=== PATIENT | male | born 1965 | race Caucasian/White ===

== ENCOUNTER → 2016-12-10 | Outpatient (CLI) | payer BC ==
[~2016-12-10] MED LIST: ABILIFY2 MG PO; ADDERALL PO; ASPIRIN81 MG PO; COMBIVENT RESPIM4 GM IH; FISH OIL 1,2001 CAP PO; LIPITOR20 MG DOB; NORVASC10 MG PO; TOPROL XL50 MG PO
--- NOTE | ~2016-12-10 | CT3 ---
[facility] A Service of [facility] RADIOLOGY TEXT RESULTS PATIENT: DEIRD[facility]OWE [facility] 63 UNIT #: [id number] AGE: [address]: Matthew Soto MD SEX: M ORDER DR: [id number] [facility] [address] [place], [place] [address] [id number] O MR#: [id number] Acc #: [id number] NAME: DEIRDRE LOWE. : 1965 SEX: M STUDY DATE/TIME: 12/10/2016 15:09 UNIT: [facility] ROOM: STUDY DESCRIPTION: CT Abd and Pelv WWo Cont Attending Physician: Matthew Soto M.D. Referring Physician: Matthew Soto M.D. Ordering Physician: Matthew Soto M.D. Primary Care Physician: Merari Beaulieu M.D. MEDICAL IMAGING REPORT This report is preliminary unless electronic signature is present EXAM CT abdomen and pelvis without and with contrast. INDICATIONS Microscopic hematuria for the past 2 years. Elevated liver enzyme levels. PROCEDURE Unenhanced CT of the abdomen and pelvis. Postcontrast CT abdomen and pelvis multiphase acquisition through the kidneys. This CT exam was performed with one or more of the following radiation dose reduction techniques: automatic exposure control, adjustment of mA and/or kV according to patient size, and iterative reconstruction. COMPARISON 08/14/2016 FINDINGS ABDOMEN WITHOUT CONTRAST: Included lung bases are clear. Liver is borderline enlarged at 19.4 cm. Hepatic steatosis. No radiodense gallstones. No radiodense urinary system calculus. PELVIS WITHOUT CONTRAST: No radiodense bladder calculus. ABDOMEN WITH CONTRAST: Kidneys enhance symmetrically. No renal mass. Symmetric excretion of contrast. The distal ureters are not well opacified. No abnormal filling defect in the opacified segments. No liver or splenic mass. Adrenal glands, pancreas, and gallbladder unremarkable. The bowel loops are nondilated. Appendix is normal. PELVIS WITH CONTRAST: No bladder mass. Bladder is decompressed. No [facility] A Service of [facility] RADIOLOGY TEXT RESULTS PATIENT: DEIRDRE LOWE LOCATION: [facility] : 63 UNIT #: [id number] AGE: [address]: Matthew Soto MD SEX: M ORDER DR: pelvic mass or fluid. No aggressive-appearing bone lesion. IMPRESSION 1. No finding to explain the patient's hematuria. 2. Borderline hepatomegaly with steatosis. Dictated by... Suman Louis M.D. THIS IS AN ELECTRONICALLY VERIFIED REPORT Suman Louis M.D. at 12/11/2016 9:33 AM BRANDEN/tez TD: 12/10/2016 17:16 JOB #: [id number] MEDICAL IMAGING REPORT Page 1 of 1 COPY
[2016-12-10 16:46] LABS: POC - CREATININE 1.21 mg/dL (0.64-1.27); POC - GFR >60.0 mL/min (>60)
== END | disposition home or self-care (01) ==
LOC: CCAT 14:10
PROVIDERS: Urology
DX: R31.29 Other microscopic hematuria (principal); K76.0 Fatty (change of) liver, not elsewhere classified; R16.0 Hepatomegaly, not elsewhere classified
CPT/HCPCS: 74178; 82565; G0103; Q9967

== ENCOUNTER → 2017-02-01 | Outpatient (CLI) | payer BC ==
--- NOTE | ~2017-02-01 | CT57 ---
[facility] A Service of [facility] RADIOLOGY TEXT RESULTS PATIENT: DEIRDRE LOWE LOCATION: [facility] : 63 UNIT #: [id number] AGE: [address]: Merari Beaulieu MD SEX: M ORDER DR: [id number] [place], [place] [address] [id number] O MR#: [id number] Acc #: [id number] NAME: DEIRDRE LOWE : 1965 SEX: M STUDY DATE/TIME: 02/01/2017 13:56 UNIT: [facility] ROOM: STUDY DESCRIPTION: CT Chest Wo Cont Attending Physician: Merari Beaulieu M.D. Referring Physician: Merari Beaulieu M.D. Ordering Physician: Merari Beaulieu M.D. Primary Care Physician: Merari Beaulieu M.D. MEDICAL IMAGING REPORT This report is preliminary unless electronic signature is present EXAM Chest CT without contrast. HISTORY Left-sided chest pain intermittently for the past 6 months. Abnormal chest x-ray demonstrating fullness at the left hilum. COMPARISON 08/14/2016 TECHNIQUE Axial images were obtained without contrast and evaluated at lung and mediastinal windows. This CT exam was performed with one or more of the following radiation dose reduction techniques: automatic exposure control, adjustment of mA and/or kV according to patient size, and iterative reconstruction. FINDINGS Chest images at mediastinal window show minimal residual thymic tissue in the anterior mediastinum. There are normal-sized mediastinal lymph nodes that are unchanged. There is no evidence of pleural or pericardial fluid. Upper abdominal structures are remarkable for hepatic steatosis. Lung window imaging shows emphysema. Both lungs are fully expanded and clear. IMPRESSION No suspicious masses are noted. No changes are seen since the previous scan. In particular, no suspicious lesions are seen at the left hilum. Dictated by... Matthew Alvares M.D. [facility] A Service of [facility] RADIOLOGY TEXT RESULTS PATIENT: DEIRDRE LOWE LOCATION: [facility] : 63 UNIT #: [id number] AGE: [address]: Merari Beaulieu MD SEX: M ORDER DR: THIS IS AN ELECTRONICALLY VERIFIED REPORT Matthew Alvares M.D. at 02/02/2017 5:00 PM Venessa TD: 02/02/2017 16:50 JOB #: [id number] MEDICAL IMAGING REPORT Page 1 of 1 COPY
== END | disposition home or self-care (01) ==
LOC: CCAT 13:06
DX: R93.8 Abnormal findings on diagnostic imaging of other specified body structures (principal)
CPT/HCPCS: 71250